=== PATIENT | female | born 1970 | race Hispanic/Latino ===

== ENCOUNTER 2019-10-04 19:46 | Observation (INO) | payer BC ==
--- OUTSIDE RECORDS SUMMARY | 2019-10-04 19:48 | XMS REPORT ---
:1970 [facility] Address [address] [place] [address] Dr. Bejarano [address] [place] [id number] Care Team Providers Name Role Phone Unavailable Unavailable Unavailable Problems This patient has no known problems. Allergies, Adverse Reactions, Alerts This patient has no known allergies or adverse reactions. Medications This patient has no known medications.
[2019-10-04] MEDS ORDERED: MORPHINE 2 MG/ML SYR ONE (20:51)
[2019-10-04] MEDS ORDERED: NA CHLORIDE 0.9% 1,000 ML ONE (20:51)
[2019-10-04] MEDS ORDERED: ONDANSETRON 4 MG/2 ML VIAL ONE (20:51)
[2019-10-04 21:20] LABS: Absolute Lymphocytes (CBC) 2.9 K/uL (0.7-4.9); Basophils % 0.5 % (0-1.3); Hematocrit 26.9 % (36.0-45.0); Lymphocytes % 24.8 % (15.3-44.8); MPV 7.3 fL (7.6-11.3); RBC Red Blood Cell Count 2.95 M/uL (3.86-4.86)
[2019-10-04 21:21] LABS: Protime INR 0.98
[2019-10-04] MEDS ORDERED: MORPHINE 4 MG/ML SYR IV PRN (21:31)
[2019-10-04] MEDS ORDERED: ALPRAZOLAM 0.25 MG TABLET PO PRN (21:31)
[2019-10-04] MEDS ORDERED: ACETAMINOPHEN 500 MG TAB PO PRN (21:31)
--- NOTE | 2019-10-04 21:49 | EDPHYS ---
Physician Documentation [facility] Name: Brenda Armenta Age: 49 yrs Sex: Female : 1970 Arrival Date: 10/04/2019 Time: 19:48 Bed 18 Private MD: ASHER Physician Ilia Alex HPI: 10/04 20:43 This 49 yrs old Female presents to ER via Ambulatory with complaints of Back erin Pain. 20:43 This 49 yrs old Female presents to ER via Ambulatory with complaints of Back erin Pain. 20:43 The patient presents with pain that is acute, with no known mechanism of injury. erin 20:43 The patient or guardian reports chest pain that is located primarily in the substernal erin area. Onset: yesterday. The symptoms are located in the T1, T2, T3, T4, T5, T6 and T7. Onset: The symptoms/episode began/occurred yesterday. The pain radiates to the thoracic area. Associated signs and symptoms: The patient has no apparent associated signs or symptoms. Historical: - Allergies: 19:55 No Known Allergies; jd3 - Home Meds: 19:55 Tresiba FlexTouch U-100 subcutaneous subcutaneous [Active]; fenofibrate micronized oral jd3 oral [Active]; Januvia oral oral [Active]; amlodipine oral [Active]; Lisinopril Oral [Active]; hydrochlorothiazide Oral [Active]; metoprolol tartrate Oral [Active]; Furosemide Oral [Active]; Ferrous Sulfate Oral [Active]; - PMHx: 19:55 kidney failure; Diabetes - NIDDM; jd3 19:57 Hypertension; Anemia; jd3 - PSHx: 19:55 Carpal Tunnel Repair; jd3 19:57 DIPTI eyes; jd3 - Immunization history:: Adult Immunizations up to date. - Social history:: Smoking status: Patient/guardian denies using tobacco. - Ebola Screening: : Patient negative for fever greater than or equal to 101.5 degrees Fahrenheit, and additional compatible Ebola Virus Disease symptoms. - Family history:: not pertinent. ROS: 20:43 Constitutional: Negative for fever, chills, and weight loss, Eyes: Negative for injury, erin pain, redness, and discharge, ENT: Negative for injury, pain, and discharge, Neck: Negative for injury, pain, and swelling, Respiratory: Negative for shortness of breath, cough, wheezing, and pleuritic chest pain, Abdomen/GI: Negative for abdominal pain, nausea, vomiting, diarrhea, and constipation, : Negative for injury, bleeding, discharge, and swelling, MS/Extremity: Negative for injury and deformity, Skin: Negative for injury, rash, and discoloration, Neuro: Negative for headache, weakness, numbness, tingling, and seizure, Psych: Negative for depression, anxiety, suicide ideation, homicidal ideation, and hallucinations, Allergy/Immunology: Negative for hives, rash, and allergies, Endocrine: Negative for neck swelling, polydipsia, polyuria, polyphagia, and marked weight changes, Hematologic/Lymphatic: Negative for swollen nodes, abnormal bleeding, and unusual bruising. 20:43 Cardiovascular: Positive for chest pain. 20:43 Back: Positive for pain at rest, of the thoracic area. Exam: 20:43 Constitutional: This is a well developed, well nourished patient who is awake, alert, erin and in no acute distress. Head/Face: Normocephalic, atraumatic. Eyes: Pupils equal round and reactive to light, extra-ocular motions intact. Lids and lashes normal. Conjunctiva and sclera are non-icteric and not injected. Cornea within normal limits. Periorbital areas with no swelling, redness, or edema. ENT: Nares patent. No nasal discharge, no septal abnormalities noted. Tympanic membranes are normal and external auditory canals are clear. Oropharynx with no redness, swelling, or masses, exudates, or evidence of obstruction, uvula midline. Mucous membranes moist. Neck: Trachea midline, no thyromegaly or masses palpated, and no cervical lymphadenopathy. Supple, full range of motion without nuchal rigidity, or vertebral point tenderness. No Meningismus. Chest/axilla: Normal chest wall appearance and motion. Nontender with no deformity. No lesions are appreciated. Cardiovascular: Regular rate and rhythm with a normal S1 and S2. No gallops, murmurs, or rubs. Normal PMI, no JVD. No pulse deficits. Respiratory: Lungs have equal breath sounds bilaterally, clear to auscultation and percussion. No rales, rhonchi or wheezes noted. No increased work of breathing, no retractions or nasal flaring. Abdomen/GI: Soft, non-tender, with normal bowel sounds. No distension or tympany. No guarding or rebound. No evidence of tenderness throughout. Back: No spinal tenderness. No costovertebral tenderness. Full range of motion. Female : Normal external genitalia. Skin: Warm, dry with normal turgor. Normal color with no rashes, no lesions, and no evidence of cellulitis. MS/ Extremity: Pulses equal, no cyanosis. Neurovascular intact. Full, normal range of motion. Neuro: Awake and alert, GCS 15, oriented to person, place, time, and situation. Cranial nerves II-XII grossly intact. Motor strength 5/5 in all extremities. Sensory grossly intact. Cerebellar exam normal. Normal gait. Psych: Awake, alert, with orientation to person, place and time. Behavior, mood, and affect are within normal limits. 20:43 Musculoskeletal/extremity: DVT Exam: No signs of deep vein thrombosis. no pain, no swelling, no tenderness, negative Homans' sign noted on exam, no appreciated bluish discoloration, no erythema, no increased warmth. Vital Signs: 19:57 BP 153 / 66; Pulse 94; Resp 17 S; Temp 98.0(O); Pulse Ox 100% on R/A; Weight 95.25 kg jd3 (R); Height 5 ft. 5 in. (165.10 cm) (R); Pain 4/10; 20:18 BP 138 / 67; Pulse 83; Resp 16 S; Pulse Ox 100% on R/A; cc3 21:18 BP 128 / 54 LA; Pulse 80; Resp 16 S; Pulse Ox 100% on R/A; cc3 21:19 BP 139 / 54 RA; Pulse 81; Resp 14 S; Pulse Ox 100% on R/A; cc3 22:10 BP 141 / 69; Pulse 83; Resp 20 S; Pulse Ox 100% on R/A; Pain 0/10; cc3 19:57 Body Mass Index 34.95 (95.25 kg, 165.10 cm) jd3 MDM: 20:06 Patient medically screened. [facility] 20:45 Data reviewed: vital signs, nurses notes, lab test result(s), EKG, radiologic studies, [facility] CT scan, plain films. 10/04 20:42 Order name: Basic Metabolic Panel [facility] 10/04 20:42 Order name: CBC with Diff; Complete Time: 21:47 [facility] 10/04 20:42 Order name: LFT's [facility] 10/04 20:42 Order name: Magnesium [facility] 10/04 20:42 Order name: NT PRO-BNP [facility] 10/04 20:42 Order name: PT-INR; Complete Time: 21:47 [facility] 10/04 20:42 Order name: Troponin (emerg Dept Use Only) [facility] 10/04 20:42 Order name: XRAY Chest (1 view) [facility] 10/04 20:43 Order name: Lipase [facility] 10/04 21:00 Order name: Urine Dipstick--Ancillary (enter results); Complete Time: 22:17 ms 10/04 21:00 Order name: Urine --Ancillary (enter results); Complete Time: 22:17 ia 10/04 21:39 Order name: Echo with Doppler [facility] 10/04 21:39 Order name: Troponin I [facility] 10/04 20:42 Order name: EKG; Complete Time: 20:44 [facility] 10/04 20:42 Order name: Cardiac monitoring; Complete Time: 20:47 [facility] 10/04 20:42 Order name: EKG - Nurse/Tech; Complete Time: 20:47 [facility] 10/04 20:42 Order name: IV Saline Lock; Complete Time: 21:25 [facility] 10/04 20:42 Order name: Labs collected and sent; Complete Time: 21:25 [facility] 10/04 20:42 Order name: O2 Per Protocol; Complete Time: 20:47 [facility] 10/04 20:42 Order name: O2 Sat Monitoring; Complete Time: 21:25 [facility] 10/04 20:43 Order name: Urine Dipstick-Ancillary (obtain specimen); Complete Time: 21:25 [facility] 10/04 20:43 Order name: Urine Test (obtain specimen); Complete Time: 21:25 [facility] 10/04 20:43 Order name: Bilateral blood pressure; Complete Time: 21:26 [facility] 10/04 21:39 Order name: CONS Physician Consult [facility] 10/04 21:39 Order name: EKG Electrocardiogram [facility] 10/04 21:39 Order name: EKG Electrocardiogram EDMO Administered Medications: 21:05 Drug: NS 0.9% 1000 ml Route: IV; Rate: 75 ml/hr; Site: right antecubital; cc3 22:00 Follow up: Response: No adverse reaction; IV Status: Infusion continued upon admission cc3 21:05 Drug: morphine 2 mg {Note: RASS 0.} Route: IVP; Site: right antecubital; cc3 21:30 Follow up: Response: No adverse reaction; Pain is decreased; RASS: Alert and Calm (0) cc3 21:10 Drug: Zofran 4 mg Route: IVP; Site: right antecubital; cc3 21:30 Follow up: Response: No adverse reaction; Nausea is decreased cc3 Disposition: 10/04/19 21:49 Hospitalization ordered by Adryan Spears for Inpatient Admission. Preliminary diagnosis are Chest pain, unspecified, Essential (primary) hypertension, Unspecified kidney failure, Type 2 diabetes mellitus, Dyspnea, Anemia, unspecified. - Bed requested for Telemetry/MedSurg (Inpatient). - Status is Inpatient Admission. cc3 - Condition is Stable. - Problem is new. - Symptoms have improved. UTI on Admission? No Signatures: Dispatcher [employer] EDMS June Mcadams RN RN mw Anderson, Corey, MD MD cha Davies, Jonathon, RN RN jd3 Cordel, Charlene cc3 Corrections: (The following items were deleted from the chart) 21:56 21:49 Hospitalization Ordered by Adryan Spears MD for Inpatient Admission. Preliminary diagnosis is Chest pain, unspecified; Essential (primary) hypertension; Unspecified kidney failure; Type 2 diabetes mellitus; Dyspnea. Bed requested for Telemetry/MedSurg (Inpatient). Status is Inpatient Admission. Condition is Stable. Problem is new. Symptoms have improved. UTI on Admission? No. erin 22:18 21:56 10/04/2019 21:49 Hospitalization Ordered by Adryan Spears MD for Inpatient erin Admission. Preliminary diagnosis is Chest pain, unspecified; Essential (primary) hypertension; Unspecified kidney failure; Type 2 diabetes mellitus; Dyspnea. Bed requested for Telemetry/MedSurg (Inpatient). Status is Inpatient Admission. Condition is Stable. Problem is new. Symptoms have improved. UTI on Admission? No. paty 22:51 22:18 10/04/2019 21:49 Hospitalization Ordered by Adryan Spears MD for Inpatient cc3 Admission. Preliminary diagnosis is Chest pain, unspecified; Essential (primary) hypertension; Unspecified kidney failure; Type 2 diabetes mellitus; Dyspnea; Anemia, unspecified. Bed requested for Telemetry/MedSurg (Inpatient). Status is Inpatient Admission. Condition is Stable. Problem is new. Symptoms have improved. UTI on Admission? No. erin
--- NOTE | 2019-10-04 21:49 | ER ---
Nurse's Notes [facility] Name: Brenda Armenta Age: 49 yrs Sex: Female : 1970 Arrival Date: 10/04/2019 Time: 19:48 Bed 18 Private MD: Diagnosis: Chest pain, unspecified;Essential (primary) hypertension;Unspecified kidney failure;Type 2 diabetes mellitus;Dyspnea;Anemia, unspecified Presentation: 10/04 19:51 Presenting complaint: Patient states: "I have been having this harp back pain that is jd3 between my shoulder blades and up into the back of my neck. when it hits it takes my breath away and i have been feeling very fatigued.". Transition of care: patient was not received from another setting of care. Onset of symptoms was October 04, 2019. Risk Assessment: Do you want to hurt yourself or someone else? Patient reports no desire to harm self or others. Initial Sepsis Screen: Does the patient meet any 2 criteria? No. Patient's initial sepsis screen is negative. Does the patient have a suspected source of infection? No. Patient's initial sepsis screen is negative. Care prior to arrival: None. 19:51 Method Of Arrival: Ambulatory jd3 19:51 Acuity: JAMIE 3 jd3 Triage Assessment: 19:59 General: Appears in no apparent distress. uncomfortable, Behavior is calm, cooperative, cc3 appropriate for age. Musculoskeletal: Circulation, motion, and sensation intact. Range of motion: intact in all extremities. Historical: - Allergies: 19:55 No Known Allergies; jd3 - Home Meds: 19:55 Tresiba FlexTouch U-100 subcutaneous subcutaneous [Active]; fenofibrate micronized oral jd3 oral [Active]; Januvia oral oral [Active]; amlodipine oral [Active]; Lisinopril Oral [Active]; hydrochlorothiazide Oral [Active]; metoprolol tartrate Oral [Active]; Furosemide Oral [Active]; Ferrous Sulfate Oral [Active]; - PMHx: 19:55 kidney failure; Diabetes - NIDDM; jd3 19:57 Hypertension; Anemia; jd3 - PSHx: 19:55 Carpal Tunnel Repair; jd3 19:57 DIPTI eyes; jd3 - Immunization history:: Adult Immunizations up to date. - Social history:: Smoking status: Patient/guardian denies using tobacco. - Ebola Screening: : Patient negative for fever greater than or equal to 101.5 degrees Fahrenheit, and additional compatible Ebola Virus Disease symptoms. - Family history:: not pertinent. Screenin:59 Abuse screen: Denies threats or abuse. Denies injuries from another. Nutritional cc3 screening: No deficits noted. Tuberculosis screening: No symptoms or risk factors identified. Fall Risk Ambulatory Aid- None/Bed Rest/Nurse Assist (0 pts). Gait- Normal/Bed Rest/Wheelchair (0 pts) Mental Status- Oriented to own ability (0 pts). Assessment: 19:59 General: Appears in no apparent distress. uncomfortable, Behavior is calm, cooperative, cc3 appropriate for age. Pain: Complains of pain in thoracic area Quality of pain is described as aching. Neuro: Level of Consciousness is awake, alert, obeys commands, Oriented to person, place, time, situation, Appropriate for age. Cardiovascular: Reports chest pain, Heart tones S1 S2 present Capillary refill < 3 seconds in bilateral fingers Patient's skin is warm and dry. Respiratory: Reports shortness of breath at rest on exertion Airway is patent Respiratory effort is even, unlabored, Respiratory pattern is regular, symmetrical. GI: Abdomen is round non-distended, Bowel sounds present X 4 quads. Abd is soft and non tender X 4 quads. : No signs and/or symptoms were reported regarding the genitourinary system. EENT: No signs and/or symptoms were reported regarding the EENT system. Derm: Skin is intact, is healthy with good turgor, Skin is pink, warm \\T\\ dry. normal. Musculoskeletal: Circulation, motion, and sensation intact. Range of motion: intact in all extremities. 20:12 Reassessment: Patient appears in no apparent distress at this time. Patient and/or cc3 family updated on plan of care and expected duration. Pain level reassessed. Patient is alert, oriented x 3, equal unlabored respirations, skin warm/dry/pink. 21:35 Reassessment: Patient appears in no apparent distress at this time. Patient and/or cc3 family updated on plan of care and expected duration. Pain level reassessed. Patient is alert, oriented x 3, equal unlabored respirations, skin warm/dry/pink. Patient denies pain at this time. Patient states feeling better. Patient states symptoms have improved. 22:16 Reassessment: Patient appears in no apparent distress at this time. Patient and/or cc3 family updated on plan of care and expected duration. Pain level reassessed. Patient is alert, oriented x 3, equal unlabored respirations, skin warm/dry/pink. Room available in 214, report called and handed over to RN RAMONA Gonzalez for continuity of care. Followed up lab results and staff Alec said he called earlier and spoke with magnetic resonance technologist Jessica that CMP green tube is hemolyzed and needs recollection but nobody told me. Blood sample recollected and sent to lab for CMP. Patient denies pain at this time. Patient states feeling better. Patient states symptoms have improved. 22:50 Reassessment: Patient appears in no apparent distress at this time. Patient and/or cc3 family updated on plan of care and expected duration. Pain level reassessed. Patient is alert, oriented x 3, equal unlabored respirations, skin warm/dry/pink. Patient left ER for admission vitally stable by wheelchair escorted by magnetic resonance technologist Gloria. No valuables left in the patient's room. Patient denies pain at this time. Patient states feeling better. Patient states symptoms have improved. Vital Signs: 19:57 BP 153 / 66; Pulse 94; Resp 17 S; Temp 98.0(O); Pulse Ox 100% on R/A; Weight 95.25 kg jd3 (R); Height 5 ft. 5 in. (165.10 cm) (R); Pain 4/10; 20:18 BP 138 / 67; Pulse 83; Resp 16 S; Pulse Ox 100% on R/A; cc3 21:18 BP 128 / 54 LA; Pulse 80; Resp 16 S; Pulse Ox 100% on R/A; cc3 21:19 BP 139 / 54 RA; Pulse 81; Resp 14 S; Pulse Ox 100% on R/A; cc3 22:10 BP 141 / 69; Pulse 83; Resp 20 S; Pulse Ox 100% on R/A; Pain 0/10; cc3 19:57 Body Mass Index 34.95 (95.25 kg, 165.10 cm) jd3 ED Course: 19:48 Patient arrived in ED. cf2 19:52 Triage completed. jd3 19:58 Arm band placed on. jd3 19:59 Betsy Ventura is Primary Nurse. cc3 19:59 Patient has correct armband on for positive identification. Placed in gown. Bed in low cc3 position. Call light in reach. Side rails up X2. security monitor on. Pulse ox on. NIBP on. 20:06 Ilia Alex MD is Attending Physician. [facility] 20:50 Inserted saline lock: 20 gauge in right antecubital area, using aseptic technique. cc3 Blood collected. inserted by magnetic resonance technologist Gloria. 21:22 XRAY Chest (1 view) In Process Unspecified. EDMS 21:47 Adryan Spears MD is Hospitalizing Provider. erin 22:15 No provider procedures requiring assistance completed. Patient admitted, IV remains in cc3 place. Administered Medications: 21:05 Drug: NS 0.9% 1000 ml Route: IV; Rate: 75 ml/hr; Site: right antecubital; cc3 22:00 Follow up: Response: No adverse reaction; IV Status: Infusion continued upon admission cc3 21:05 Drug: morphine 2 mg {Note: RASS 0.} Route: IVP; Site: right antecubital; cc3 21:30 Follow up: Response: No adverse reaction; Pain is decreased; RASS: Alert and Calm (0) cc3 21:10 Drug: Zofran 4 mg Route: IVP; Site: right antecubital; cc3 21:30 Follow up: Response: No adverse reaction; Nausea is decreased cc3 Outcome: 21:49 Decision to Hospitalize by Provider. erin 22:15 Admitted to Med/surg accompanied by tech, family with patient, via wheelchair, room cc3 214, with chart, Report called to STEW Gonzalez 22:15 Condition: stable 22:15 Instructed on the need for admit, Demonstrated understanding of instructions. 22:51 Patient left the ED. cc3 Signatures: Dispatcher [employer] EDMD Ilia Alex MD MD cha Davies, Jonathon, RN RN jd3 Cordel, Charlene cc3 Preston Shannon cf2 Corrections: (The following items were deleted from the chart) 10/05 00:39 10/04 22:16 Reassessment: Patient appears in no apparent distress at this time. Patient cc3 and/or family updated on plan of care and expected duration. Pain level reassessed. Patient is alert, oriented x 3, equal unlabored respirations, skin warm/dry/pink. Room available in 214, report called and handed over to STEW Gonzalez for continuity of care. cc3
[2019-10-04] MEDS ORDERED: NA CHLORIDE 0.9% 1,000 ML IV SCH (22:00)
[2019-10-04 22:11] LABS: Urine Blood TRACE (NEG); Urine Glucose NEGATIVE (NEG); Urine Protein 2+ (NEG)
[2019-10-04 23:45] LABS: ALT/SGPT 27 U/L (12-78); AST/SGOT 20 U/L (15-37); Albumin 3.6 g/dL (3.4-5.0); Alkaline Phosphatase 78 U/L (45-117); BUN Blood Urea Nitrogen 65 mg/dL (7-18); Bicarbonate 19 mmol/L (21-32); Bilirubin Direct 0.2 mg/dL (0-0.2); Bilirubin Total 0.2 mg/dL (0.2-1.0); Glucose Level 78 mg/dL (74-106); Magnesium 1.6 mg/dL (1.8-2.4); NT PRO-BNP 815 pg/mL (<125); Potassium 5.4 mmol/L (3.5-5.1); Protein, Total 7.4 g/dL (6.4-8.2); Sodium Level 140 mmol/L (136-145); Troponin (Emerg Dept Use Only) < 0.02 ng/mL (0.0-0.045)
[2019-10-04 23:49] LABS: Lipase 217 U/L (73-393)
[2019-10-05 00:51] VITALS: BMI 34.9
[2019-10-05] MEDS ORDERED: CALCIUM GLUC 10% INJ 4.65 MEQ in NA CHLORIDE 0.9% 100 ML IV ONE (02:00)
[2019-10-05] MEDS ORDERED: Magnesium Sulfate 2gm IVPB 2 G/50 ML BAG IV ONE (02:00)
[2019-10-05] MEDS ORDERED: CALCIUM GLUCONATE 1 GM IVPB 1 GM/50 ML BAG IV ONE (02:35)
[2019-10-05] MEDS: D5W 1,000 ML with NA BICARB 8.4% 100 MEQ IV SCH ×4 (02:40→03:42)
[2019-10-05] MEDS ORDERED: D5W 1,000 ML IV ONE (03:07)
[2019-10-05] MEDS ORDERED: SODIUM BICARB 50 MEQ/50ML VIAL ONE (03:08)
[2019-10-05] MEDS ORDERED: TEMAZEPAM 15 MG CAP PO PRN (04:43)
[2019-10-05 05:20] VITALS: O2SAT 99
[2019-10-05] MEDS: METOPROLOL TAR 50 MG TAB PO SCH ×2 (05:28→08:27)
[2019-10-05 06:05] LABS: RBC Red Blood Cell Count 2.52 M/uL (3.86-4.86)
[2019-10-05 06:21] LABS: BUN Blood Urea Nitrogen 61 mg/dL (7-18); Bicarbonate 23 mmol/L (21-32); Glucose Level 107 mg/dL (74-106); HDL Cholesterol 39 mg/dL (40-60); LDL Cholesterol, Calculated 32 (<130); Potassium 4.6 mmol/L (3.5-5.1); Sodium Level 142 mmol/L (136-145); Troponin I < 0.02 ng/mL (0.0-0.045)
[2019-10-05 06:40] LABS: Ferritin 102.2 ng/mL (8-388); Folic Acid, (Folate) 8.4 ng/mL (3.1-17.5); Magnesium 2.5 mg/dL (1.8-2.4); Phosphorus 5.3 mg/dL (2.5-4.9)
[2019-10-05 07:25] LABS: Absolute Lymphocytes (CBC) 2.8 K/uL (0.7-4.9); Basophils % 0.4 % (0-1.3); MPV 7.5 fL (7.6-11.3); RBC Red Blood Cell Count 2.63 M/uL (3.86-4.86)
--- NOTE | 2019-10-05 08:17 | RAD REPORT ---
EXAM DESCRIPTION: RAD - Chest Single View - 10/04/2019 9:22 pm CLINICAL HISTORY: Chest pain, back pain COMPARISON: May 2011 chest exam TECHNIQUE: AP portable chest image was obtained 2117 hours . FINDINGS: No focal mass or consolidation. Heart size is increased over the comparison. Central vascu lature is slightly increased over comparison as well. Trachea is midline. Heart and vasculature are n ormal. No measurable pleural effusion and no pneumothorax. No acute bony abnormality seen. No acute a ortic findings suspected. IMPRESSION: Heart, vasculature and lung markings are slightly increased over comparison. No focal in filtrate or mass. Correlation is needed with any findings of early failure or volume overload.
[2019-10-05] MEDS ORDERED: INSULIN DEGLUDEC 40 UNIT SQ SCH (09:00)
[2019-10-05] MEDS ORDERED: ENOXAPARIN 40 MG/0.4 ML SQ SCH (09:00)
[2019-10-05] MEDS ORDERED: ASPIRIN EC 81 MG TAB PO SCH (09:00)
[2019-10-05] MEDS ORDERED: METOPROLOL XL 25 MG TAB PO SCH (09:00)
--- NOTE | 2019-10-05 10:12 | P.HP ---
Certification for Inpatient Patient admitted to: Observation With expected LOS: <2 Midnights Patient will require the following post-hospital care: None Practitioner: I am a practitioner with admitting privileges, knowledge of patient current condition, hospital course, and medical plan of care. Services: Services provided to patient in accordance with Admission requirements found in Title 42 Section 412.3 of the Code of Federal Regulations Patient History Date of Service: 10/04/19 Reason for admission: CHEST PAIN RULE OUT ACUTE CORONARY SYNDROME History of Present Illness: PATIENT IS A 41-YEAR-OLD FEMALE WHO PRESENTS TO THE HOSPITAL WITH CHEST DISCOMFORT. PAIN WAS MAINLY THE STERNAL REGION WITH NO RADIATION. PATIENT HAD NO NAUSEA OR VOMITING. PATIENT HAD NO DIAPHORESIS. PAIN STARTED IMPROVING WHILE IN THE HOSPITAL. IT IS PRETTY MUCH RESOLVED AND SHE FEELS MUCH BETTER. SHE FOLLOWS UP WITH CARDIOLOGY IN DR.ATTAR KATHY. SHE HAS HAD A CHEMICAL STRESS TEST IN THE PAST WHICH WAS UNREMARKABLE. SHE SAID IT MADE HER FEEL REALLY BAD AND SHE REFUSES TO HAVE ANOTHER 1. SHE DOES FEEL LIKE SHE NEEDS A STRESS TEST AT THIS TIME AND SHE WOULD RATHER FOLLOW-UP WITH HER FORMING AND ASSEMBLING SUPERVISOR. AT THIS TIME HER EKG AND TROPONINS ARE NEGATIVE. IF THEY REMAIN NEGATIVE THE PATIENT SHOULD BE STABLE FOR DISCHARGE HOME IN THE MORNING WITH OUTPATIENT FOLLOW-UP. INCIDENTALLY PATIENT ALSO HAS CHRONIC KIDNEY DISEASE. SHE FOLLOWS UP WITH A PIECE MEAT TRIMMER IN THE [place] FOR HER RENAL EVALUATION. SHE WILL CONTINUE FOLLOWING UP WITH HIM AT THE TIME OF DISCHARGE. ANTICIPATE DISCHARGE HOME IN THE MORNING IF HER SYMPTOMS HAVE RESOLVED AND IF TROPONINS AND EKG ARE UNREMARKABLE. Allergies hydrocodone [Hydrocodone] Allergy (Mild, Verified 10/04/19 22:58) Nausea/Vomiting Home Medications: Amlodipine [Norvasc*] 1 tab PO DAILY 10/05/19 Fenofibrate,Micronized [Fenofibrate] 54 mg PO DAILY 10/05/19 Ferrous Sulfate 1 tab PO TID 10/05/19 Furosemide 1 tab PO DAILY 10/05/19 Insulin Degludec [Tresiba Flextouch U-100] 80 units SQ DAILY 10/05/19 Lisinopril 1 tab PO DAILY 10/05/19 Metoprolol Succinate [Toprol Xl] 1 tab PO DAILY 10/05/19 Sitagliptin Phosphate [Januvia] 1 tab PO DAILY 10/05/19 hydroCHLOROthiazide [Hydrochlorothiazide*] 1 cap PO DAILY 10/05/19 - Past Medical/Surgical History Has patient received pneumonia vaccine in the past: No Diabetic: Yes -: IDDM -: HTN -: Renal failure -: Anemia -: lenses both eyes-cataract sx -: right hand carpal tunnel sx -: heart cath - Family History Father Medical History: Hypertension parents Medical History: Diabetes - Social History Smoking Status: Former smoker Alcohol use: Yes CD- Drugs: No Caffeine use: Yes Place of Residence: Home Review of Systems 10-point ROS is otherwise unremarkable Physical Examination - Vital Signs Temperature: 97.9 F Blood Pressure: 129/72 Pulse: 69 Respirations: 16 Pulse Ox (%): 100 - Physical Exam General: Alert, In no apparent distress, Oriented x3 HEENT: Atraumatic, PERRLA, Mucous membr. moist/pink, EOMI, Sclerae nonicteric Neck: Supple, 2+ carotid pulse no bruit, No LAD, Without JVD or thyroid abnormality Respiratory: Clear to auscultation bilaterally, Normal air movement Cardiovascular: Regular rate/rhythm, Normal S1 S2 Gastrointestinal: Normal bowel sounds, Soft and benign, Non-distended, No tenderness Musculoskeletal: No clubbing, No swelling, No tenderness Integumentary: No rashes Neurological: Normal gait, Normal speech, Normal strength at 5/5 x4 extr, Normal tone, Sensation intact, Cranial nerves 3-12 intact, Normal affect Lymphatics: No axilla or inguinal lymphadenopathy - Studies Laboratory Data (last 24 hrs) 10/04/19 21:01: PT 11.6, INR 0.98 10/04/19 21:01: WBC 11.5 H, Hgb 9.1 L, Hct 26.9 L, Plt Count 315 Assessment & Plan - Problems (Diagnosis) (1) Chest pain, rule out acute myocardial infarction Current Visit: Yes Status: Acute (2) Chronic kidney disease, stage 4 (severe) Current Visit: Yes Status: Acute (3) Anemia in chronic kidney disease Current Visit: Yes Status: Acute - Plan 1. SERIAL TROPONINS AND EKG 2. CARDIOLOGY CONSULTATION 3. FURTHER TESTING PER RECOMMENDATIONS PER CARDIOLOGY 4. ANTI-PLATELET THERAPY, ANTI COAGULATION, BETA-RICKEY, STATIN, AND O2 NEEDED 5. IV MORPHINE FOR PAIN 6. REPEAT BUN AND CREATININE IN THE MORNING. PATIENT WANTS TO FOLLOW-UP AN OUTPATIENT WITH HER FORMING AND ASSEMBLING SUPERVISOR AND HER PIECE MEAT TRIMMER IF HER WORKUP IS UNREMARKABLE IN THE HOSPITAL. WE WILL PROCEED WITH HER WISHES AND IF HER TROPONINS AND EKG DID NOT REVEAL ANY ABNORMALITIES OVER THE NEXT 12-24 HOURS THAT SHE SHOULD BE STABLE FOR DISCHARGE WITH OUTPATIENT FOLLOW-UP. Discharge Plan: Home Plan to discharge in: 24 Hours - Advance Directives Does patient have a Living Will: No Does patient have a Durable POA for Healthcare: No - Code Status/Comfort Care Code Status Assessed: Yes Code Status: Full Code Critical Care: No Time Spent Managing PTS Care (In Minutes): 45
--- NOTE | 2019-10-05 10:17 | P.DS ---
Discharge Date: 10/05/19 Disposition: ROUTINE DISCHARGE Discharge Condition: GOOD Reason for Admission: CHEST PAIN RULE OUT ACUTE CORONARY SYNDROME - Problems (1) Chest pain, rule out acute myocardial infarction Current Visit: Yes Status: Acute (2) Chronic kidney disease, stage 4 (severe) Current Visit: Yes Status: Acute (3) Anemia in chronic kidney disease Current Visit: Yes Status: Acute Brief History of Present Illness: PATIENT IS A 41-YEAR-OLD FEMALE WHO PRESENTS TO THE HOSPITAL WITH CHEST DISCOMFORT. PAIN WAS MAINLY THE STERNAL REGION WITH NO RADIATION. PATIENT HAD NO NAUSEA OR VOMITING. PATIENT HAD NO DIAPHORESIS. PAIN STARTED IMPROVING WHILE IN THE HOSPITAL. IT IS PRETTY MUCH RESOLVED AND SHE FEELS MUCH BETTER. SHE FOLLOWS UP WITH CARDIOLOGY IN DR.ATTAR KATHY. SHE HAS HAD A CHEMICAL STRESS TEST IN THE PAST WHICH WAS UNREMARKABLE. SHE SAID IT MADE HER FEEL REALLY BAD AND SHE REFUSES TO HAVE ANOTHER 1. SHE DOES FEEL LIKE SHE NEEDS A STRESS TEST AT THIS TIME AND SHE WOULD RATHER FOLLOW-UP WITH HER HOOK TENDER. AT THIS TIME HER EKG AND TROPONINS ARE NEGATIVE. IF THEY REMAIN NEGATIVE THE PATIENT SHOULD BE STABLE FOR DISCHARGE HOME IN THE MORNING WITH OUTPATIENT FOLLOW-UP. INCIDENTALLY PATIENT ALSO HAS CHRONIC KIDNEY DISEASE. SHE FOLLOWS UP WITH A CLINICAL SCIENTIST IN THE [place] FOR HER RENAL EVALUATION. SHE WILL CONTINUE FOLLOWING UP WITH HIM AT THE TIME OF DISCHARGE. ANTICIPATE DISCHARGE HOME IN THE MORNING IF HER SYMPTOMS HAVE RESOLVED AND IF TROPONINS AND EKG ARE UNREMARKABLE. Hospital Course: PATIENT'S SERIAL TROPONIN AND EKG HAVE BEEN UNREMARKABLE. PATIENT WILL DISCHARGE HOME AND FOLLOW UP WITH CARDIOLOGY AND NEPHROLOGY AN OUTPATIENT PER HER WISHES. Vital Signs/Physical Exam: Temp Pulse Resp BP Pulse Ox 97.9 F 69 16 129/72 100 10/05/19 10:12 10/05/19 10:12 10/05/19 10:12 10/05/19 10:12 10/05/19 10:12 General: Alert, In no apparent distress, Oriented x3 Laboratory Data at Discharge: WBC 9.6 K/uL (4.3-10.9) D 10/05/19 05:27 Hgb 8.2 g/dL (12.0-15.0) L 10/05/19 05:27 Hct 24.0 % (36.0-45.0) L 10/05/19 05:27 Plt Count 257 K/uL (152-406) 10/05/19 05:27 PT 11.6 SECONDS (9.5-12.5) 10/04/19 21:01 INR 0.98 10/04/19 21:01 Sodium 142 mmol/L (136-145) 10/05/19 05:27 Potassium 4.6 mmol/L (3.5-5.1) 10/05/19 05:27 BUN 61 mg/dL (7-18) H 10/05/19 05:27 Creatinine 4.22 mg/dL (0.55-1.3) H 10/05/19 05:27 Glucose 107 mg/dL (74-106) H 10/05/19 05:27 Phosphorus 5.3 mg/dL (2.5-4.9) H 10/05/19 05:27 Magnesium 2.5 mg/dL (1.8-2.4) H D 10/05/19 05:27 Total Bilirubin 0.2 mg/dL (0.2-1.0) 10/04/19 22:20 AST 20 U/L (15-37) 10/04/19 22:20 ALT 27 U/L (12-78) 10/04/19 22:20 Alkaline Phosphatase 78 U/L (45-117) 10/04/19 22:20 Troponin I < 0.02 ng/mL (0.0-0.045) 10/05/19 05:27 Triglycerides Cancelled 10/05/19 06:00 Cholesterol Cancelled 10/05/19 06:00 HDL Cholesterol Cancelled 10/05/19 06:00 Cholesterol/HDL Ratio Cancelled 10/05/19 06:00 Lipase 217 U/L (73-393) 10/04/19 22:20 Home Medications: Amlodipine [Norvasc*] 1 tab PO DAILY 10/05/19 Fenofibrate,Micronized [Fenofibrate] 54 mg PO DAILY 10/05/19 Ferrous Sulfate 1 tab PO TID 10/05/19 Furosemide 1 tab PO DAILY 10/05/19 Insulin Degludec [Tresiba Flextouch U-100] 80 units SQ DAILY 10/05/19 Lisinopril 1 tab PO DAILY 10/05/19 Metoprolol Succinate [Toprol Xl] 1 tab PO DAILY 11/24/19 Sitagliptin Phosphate [Januvia] 1 tab PO DAILY 10/05/19 hydroCHLOROthiazide [Hydrochlorothiazide*] 1 cap PO DAILY 10/05/19 Patient Discharge Instructions: OK TO DC IV AND DC HOME. FOLLOW-UP WITH PRIMARY CARE PROVIDER IN 1-2 WEEKS. FOLLOW-UP WITH CARDIOLOGY IN 1-2 WEEKS. FOLLOW-UP WITH NEPHROLOGY IN 1-2 WEEKS. RETURN TO THE ER IF SYMPTOMS WORSEN. CALL DR. VALLE AT [phone] IF ANY QUESTIONS REGARDING HOSPITAL STAY. PLEASE CALL THE FLOOR AT [phone] IF ANY MEDICATION OR NURSING QUESTIONS. Diet: Renal Activity: Fall precautions Time spent managing pt's care (in minutes): 30
[2019-10-05 13:49] VITALS: BP 149/63; TEMP 97.6
--- NOTE | 2019-10-06 09:40 | EKG ---
Test Date: 2019-10-04 Test Time: 20:26:27 High School Teacher: VIRAJ MEASUREMENT RESULTS: Intervals: Rate: 93 WI: 154 QRSD: 90 QT: 380 QTc: 472 [place]: P: 46 WI: 154 QRS: 15 T: 86 INTERPRETIVE STATEMENTS: Normal sinus rhythm Otherwise normal ECG Compared to ECG 08/15/2013 08:44:30 no significant change from previous ECG Electronically Signed On 10-06-19 09:39:10 SHIP PILOT DISPATCHER by Samm Clark
--- NOTE | 2019-10-06 10:26 | CON ---
Date of Consultation: 10/05/[address] Jeter on 10/04/2019. I saw the patient on 10/05/2019. Reason For Consultation: Chest pain. History Of Present Illness: Ms. Armenta is a 49-year-old woman, has a history of hypertension, diabetes , dyslipidemia, chronic renal disease. Came in mostly with back pain radiating to the chest. It was sharp, stabbing. There was some question about atrial fibrillation, but I would not see that on the monitor or the EKG, that was mostly sinus tach with PACs. The patient is asymptomatic now. Has rul ed out for an DC. Her BNP is 815, hemoglobin of 8.2, creatinine of 4.22. She is not on dialysis. S he is on a kidney transplant list. Denied any nausea, vomiting, diaphoresis, PND, orthopnea, pedal e kellee, palpitations, or syncope. Allergies: TO HYDROCODONE. Review of Systems: Negative. Social History: Negative. Family History: Negative. Medications: At home include Norvasc, fenofibrate, Lasix, iron, lisinopril, hydrochlorothiazide, met oprolol and Januvia. Physical Examination: General: She was pleasant, in no acute distress. Vital Signs: Stable. Sinus rhythm. HEENT: Negative. Neck: Supple with no bruit. Chest: Clear. Cardiac: Revealed a regular rhythm and rate with S4 gallops. Abdomen: Obese, but benign. Extremities: Revealed no clubbing, cyanosis, or edema. Skin: Dry and intact. Neurologic: She was neurologically nonfocal. Diagnostic Data: As stated earlier. EKG is normal. Impression And Plan: 1.Atypical chest pain with back pain. Most likely secondary to gastroesophageal reflux disease. Th is is not a cardiac issue. She has had a negative cardiac workup including echo and stress test as a preop clearance for a possible kidney transplant. She is followed by Dr. Darling from a Nephrology [facility] in [place]. 2.Possible atrial fibrillation not documented by EKG or monitors or telemetry. I think it may have been seen on her way to the hospital, but they have not documented this and I am certainly not going to put her on anticoagulants without any documented atrial fibrillation. Her hemoglobin is already 8 .2. She has no renal failure. She is at high risk of bleeding. I would just suggest that she get a n event monitor as an outpatient maybe with her secondary education professor. I would be happy to see her in the off ice as an outpatient. From my standpoint, otherwise she can go home. I will suggest that she get of f lisinopril and hydrochlorothiazide considering her renal dysfunction, but I will leave that up to h er secondary education professor. Her other problems include diabetes and dyslipidemia, both of those are within norm al limit at this point. HORACIO/ANTONY Voice ID: [id number] Report ID: [id number]
== END 2019-10-05 14:12 | disposition home or self-care (01) ==
LOC: ER 19:46 → ERHOLD 21:31 → 2ND 22:17
PROVIDERS: ADMIT Hospitalist; ATTEND Hospitalist
DX: R07.9 Chest pain, unspecified (principal); I12.9 Hypertensive chronic kidney disease with stage 1 through stage 4 chronic kidney disease, or unspecified chronic kidney disease; E11.22 Type 2 diabetes mellitus with diabetic chronic kidney disease; N18.4 Chronic kidney disease, stage 4 (severe); Z87.891 Personal history of nicotine dependence; D63.1 Anemia in chronic kidney disease
CPT/HCPCS: 96361; 93005; 85025 ×2; 80048 ×2; 36415; 86900; 83735 ×2; 86850; 83615; 81025; 84100; 85610; 85044; 80061; 86901; 82947 ×3; 80076; 81003; 84484 ×3; 82728; 82746; 82607; 83690; 83540; 83880; 84466; 71045; 96375; 96374; 99285; J0610 ×2; J1650; J2270; J3475; J7030; J2405; G0378 ×2

== ENCOUNTER → 2023-12-04 | Emergency (ER) | payer BC ==
[2023-12-04 10:30] LABS: Absolute Lymphocytes (CBC) 1.6 K/uL (0.7-4.9); Hematocrit 36.7 % (36.0-45.0); Lymphocytes % 20.3 % (15.3-44.8); MCV 90.5 fL (80-100); MPV 6.8 fL (7.6-11.3); Platelets 235 thou/uL (152-406); RBC Red Blood Cell Count 4.06 M/uL (3.86-4.86)
[2023-12-04 10:53] LABS: Albumin 3.9 g/dL (3.4-5.0); Bilirubin Total 0.3 mg/dL (0.2-1.0); Potassium 3.5 mEq/L (3.5-5.1); Protein, Total 7.9 g/dL (6.4-8.2)
--- NOTE | 2023-12-04 11:27 | EDPHYS ---
Physician Documentation [facility] Name: Brenda Armenta Age: 53 yrs Sex: Female : 1970 Arrival Date: 12/04/2023 Time: 09:53 Bed 6 Private MD: ED Physician Andrez Mejia HPI: 12/04 09:55 This 53 yrs old Female presents to ER via Unassigned with complaints of Low ec2 Blood Sugar. 09:55 Patient arrives today for evaluation of low blood sugar. Patient reports that she is a ec2 diabetic, takes multiple medications that hypoglycemic agents, states that she took her medications today, had some small amount of food, states that at work she felt little bit lightheaded and drowsy and subsequently called EMS. EMS reports that they noted her blood sugar to be low and subsequently gave her oral glucose as well as dextrose IV. Subsequent sugars improved. Patient reports that she is back to baseline. Reports no issues with vomiting or diarrhea. Does report some recent cough and cold symptoms. Denies any difficulty breathing. She reports that she has had a couple bouts of hypoglycemia over the past year, no recent medication changes.. Historical: - Allergies: 09:57 No Known Allergies; kc6 - PMHx: 09:57 Anemia; Diabetes - NIDDM; Hypertension; kidney failure; kc6 - PSHx: 09:57 renal transplant (kidney failure); kc6 - Immunization history:: Adult Immunizations up to date. - Social history:: Smoking status: Reported history of juuling and/or vaping. ROS: 09:55 Constitutional: as per hpi ec2 Exam: 09:55 Constitutional: GEN: NAD Head: atraumatic Eyes: EOMI Ears: External ears are ec2 normal. CV: regular rate LUNGS: no respiratory distress ABD: non-distended SKIN: no evidence of rashes MSK: no evidence of trauma NEURO: moves all extremities equally Vital Signs: 09:54 BP 140 / 70; Pulse 64; Resp 16 S; Temp 97.9(TE); Pulse Ox 100% on R/A; Weight 104.33 kg kc6 (R); Height 5 ft. 7 in. (R); Pain 0/10; 11:57 BP 136 / 61; Pulse 60; Resp 17 S; Pulse Ox 98% on R/A; kc6 09:54 Body Mass Index 36.02 (104.33 kg, 170.18 cm) 6 09:54 Pain Scale: Adult kc6 MDM: 09:55 Patient medically screened. ec2 09:55 Data reviewed: vital signs. ED course: Diabetic patient who arrives today for ec2 hypoglycemic episode that is now resolved. Examination remarkable for well-appearing nontoxic individual is otherwise in no acute distress. Will obtain basic lab work to assess renal function and electrolytes. Suspect poor p.o. intake is the main cdl a driver of the patient's hypoglycemia given the hypoglycemic agent she takes. Low suspicion for pneumonia, low suspicion for UTI given lack of symptoms . 10:59 ED course: CBC, metabolic profile reassuring, will recheck blood sugar and if within ec2 appropriate ranges will discharge home. . 12/04 09:55 Order name: CBC with Diff; Complete Time: 10:59 ec2 12/04 09:55 Order name: CMP; Complete Time: 10:59 ec2 12/04 10:13 Order name: Glucose, Ancillary Testing; Complete Time: 10:59 EDMS 12/04 11:28 Order name: Glucose, Ancillary Testing; Complete Time: 11:33 EDMS 12/04 11:00 Order name: Glucose Level; Complete Time: 11:34 ec2 Administered Medications: No medications were administered Disposition Summary: 12/04/23 11:26 Discharge Ordered Notes: Location: Home ec2 Condition: Stable ec2 Diagnosis - Hypoglycemia, unspecified ec2 Followup: ec2 - With: Private Physician - When: - Reason: Recheck today's complaints Discharge Instructions: - Discharge Summary Sheet ec2 - Hypoglycemia ec2 Forms: - Work release form ph - Medication Reconciliation Form ec2 - Thank You Letter ec2 - Antibiotic Education ec2 - Prescription Opioid Use ec2 - Patient Portal Instructions ec2 - Leadership Thank You Letter ec2 Signatures: Dispatcher [employer] Laura Veloz RN RN kc6 Andrez Mejia MD MD ec2 Corrections: (The following items were deleted from the chart) 09:57 09:55 Patient arrives today for evaluation of low blood sugar. Patient reports that she ec2 is a diabetic, takes multiple medications that hypoglycemic agents, states that she took her medications today, had some small amount of food, states that at work she felt little bit lightheaded and drowsy and subsequently called EMS. EMS reports that they noted her blood sugar to be low and subsequently gave her oral glucose as well as dextrose IV. Subsequent sugars improved. Patient reports that she is back to baseline. Reports no issues with vomiting or diarrhea. Does report some recent cough and cold symptoms. Denies any difficulty breathing.. ec2
--- NOTE | 2023-12-04 11:27 | ER ---
Nurse's Notes [facility] Name: Brenda Armenta Age: 53 yrs Sex: Female : 1970 Arrival Date: 12/04/2023 Time: 09:53 Bed 6 Private MD: Diagnosis: Hypoglycemia, unspecified Presentation: 12/04 09:54 Chief complaint: EMS states: pt was in the control room at work when she started to act kc6 her usual self. [facility] paramedics were toned out and she had a BGL of 32. pt was given oral and IV glucose and BGL increased to 152. pt is now awake, A\T\O x4, reports feeling sleepy. Coronavirus screen: At this time, the client does not indicate any symptoms associated with coronavirus-19. Ebola Screen: No symptoms or risks identified at this time. Initial Sepsis Screen: Does the patient meet any 2 criteria? No. Patient's initial sepsis screen is negative. Does the patient have a suspected source of infection? No. Patient's initial sepsis screen is negative. Risk Assessment: Do you want to hurt yourself or someone else? Patient reports no desire to harm self or others. Onset of symptoms was December 04, 2023. 09:54 Method Of Arrival: EMS: [place] [id number] 09:54 Acuity: JAMIE 3 kc6 Triage Assessment: 09:57 General: Appears in no apparent distress. comfortable, well groomed, well developed, kc6 Behavior is calm, cooperative, appropriate for age. Pain: Denies pain. EENT: No signs and/or symptoms were reported regarding the EENT system. Neuro: Level of Consciousness is awake, alert, obeys commands, Oriented to person, place, time, situation, Appropriate for age. Cardiovascular: Capillary refill < 3 seconds. Respiratory: Airway is patent Trachea midline Respiratory effort is even, unlabored, Respiratory pattern is regular, symmetrical. GI: No signs and/or symptoms were reported involving the gastrointestinal system. : No signs and/or symptoms were reported regarding the genitourinary system. Derm: No signs and/or symptoms reported regarding the dermatologic system. Skin is intact, is healthy with good turgor, Skin is pink, warm \T\ dry. Musculoskeletal: No signs and/or symptoms reported regarding the musculoskeletal system. Circulation, motion, and sensation intact. Capillary refill < 3 seconds, Range of motion: intact in all extremities. Historical: - Allergies: 09:57 No Known Allergies; kc6 - PMHx: 09:57 Anemia; Diabetes - NIDDM; Hypertension; kidney failure; kc6 - PSHx: 09:57 renal transplant (kidney failure); kc6 - Immunization history:: Adult Immunizations up to date. - Social history:: Smoking status: Reported history of juuling and/or vaping. Screenin:59 [facility] ED Fall Risk Assessment (Adult) History of falling in the last 3 months, kc6 including since admission No falls in past 3 months (0 pts) Confusion or Disorientation No (0 pts) Intoxicated or Sedated No (0 pts) Impaired Gait No (0 pts) Mobility Assist Device Used No (0 pt) Altered Elimination No (0 pt) Score/Fall Risk Level 0 - 2 = Low Risk. Abuse screen: Denies threats or abuse. Denies injuries from another. Nutritional screening: No deficits noted. Tuberculosis screening: No symptoms or risk factors identified. Assessment: :59 Reassessment: please see triage assessment. kc6 11:52 Reassessment: Patient appears in no apparent distress at this time. No changes from [facility] previously documented assessment. Patient and/or family updated on plan of care and expected duration. Pain level reassessed. Patient is alert, oriented x 3, equal unlabored respirations, skin warm/dry/pink. Vital Signs: 09:54 BP 140 / 70; Pulse 64; Resp 16 S; Temp 97.9(TE); Pulse Ox 100% on R/A; Weight 104.33 kg kc6 (R); Height 5 ft. 7 in. (R); Pain 0/10; 11:57 BP 136 / 61; Pulse 60; Resp 17 S; Pulse Ox 98% on R/A; kc6 09:54 Body Mass Index 36.02 (104.33 kg, 170.18 cm) kc6 09:54 Pain Scale: Adult [facility] ED Course: 09:54 Patient arrived in ED. kc6 09:55 Andrez Mejia MD is Attending Physician. ec2 09:57 Triage completed. kc6 09:57 Arm band placed on. kc6 09:59 Patient has correct armband on for positive identification. Bed in low position. Call [facility] light in reach. Side rails up X 1. Client placed on continuous cardiac and pulse oximetry monitoring. NIBP monitoring applied. 09:59 Maintain EMS IV. Dressing intact. Good blood return noted. Site clean \T\ dry. Gauge \T\ see 6 site: 20G R HAND. Patient maintains SpO2 saturation greater than 95% on room air. 10:00 Laura Candelario, RN is Primary Nurse. kc6 10:23 IV discontinued, intact, bleeding controlled, No redness/swelling at site. Pressure kc6 dressing applied. Inserted saline lock: 22 gauge in right wrist, using aseptic technique. Blood collected. 11:57 No provider procedures requiring assistance completed. IV discontinued, intact, kc6 bleeding controlled, No redness/swelling at site. Pressure dressing applied. Administered Medications: No medications were administered Medication: 11:57 VIS not applicable for this client. kc6 Outcome: 11:26 Discharge ordered by . ec2 11:57 Discharged to home ambulatory, with significant other, kc6 11:57 Condition: improved 11:57 Discharge instructions given to patient, Instructed on discharge instructions, follow up and referral plans. Demonstrated understanding of instructions, follow-up care, 11:57 Patient left the ED. kc6 Signatures: Laura Candelario, STEW RN kc6 Andrez Mejia MD MD ec2
[2023-12-04 13:21] VITALS: TEMP 97.9
[2023-12-04 13:36] VITALS: BP 136/61; O2SAT 98
== END ==
LOC: ER 09:53
DX: E11.649 Type 2 diabetes mellitus with hypoglycemia without coma (principal); I10 Essential (primary) hypertension; Z94.0 Kidney transplant status
CPT/HCPCS: 36415; 80053; 82947; 85025; 99284